=== PATIENT | male | born 1950 | race Caucasian/White ===

== ENCOUNTER 2018-09-21 18:01 | Inpatient (IN) | payer BC ==
[2018-09-21] MEDS ORDERED: HYDROmorphONE 0.5 MG/0.5 ML SYG IV (19:00)
[2018-09-21] MEDS ORDERED: NACL 0.9% 3 ML SYG IV (19:00)
[2018-09-21] MEDS ORDERED: AMIKACIN IV PER PHARMACY XX (19:00)
[2018-09-21] MEDS ORDERED: GLUCOSE GEL 15 GRAM TUBE PO ×2 (19:30)
[2018-09-21] MEDS ORDERED: GLUCOSE GEL 15 GRAM TUBE BUCCAL (19:30)
[2018-09-21] MEDS ORDERED: GLUCAGON 1 MG INJ IM (19:30)
[2018-09-21] MEDS ORDERED: DEXTROSE 50% 50 ML SYRINGE IV ×2 (19:30)
[2018-09-21 20:03] LABS: ADD MAN DIFF? NO
[2018-09-21 20:23] LABS: WHITE BLOOD COUNT 10.3 10^3/ul (4.8-10.8)
[2018-09-21 20:23] LABS: BASOPHILS % 0.2 % (0.0-2.0); EOSINOPHILS # 0.2 10^3/ul (0.0-0.5); EOSINOPHILS % 1.9 % (0.0-7.0); HEMATOCRIT 30.8 % (42.0-52.0); LYMPHOCYTES # 1.6 10^3/ul (0.8-2.9); LYMPHOCYTES % 15.5 % (15.0-51.0); MEAN CORPUSCULAR HEMOGLOBIN 27.6 pg (29.0-33.0); MEAN CORPUSCULAR HGB CONC 29.2 g/dl (32.0-37.0); MEAN CORPUSCULAR VOLUME 94.5 fl (82.0-101.0); MEAN PLATELET VOLUME 10.6 fl (7.4-10.4); MONOCYTE # 0.7 10^3/ul (0.3-0.9); MONOCYTES % 6.6 % (0.0-11.0); NEUTROPHIL # 7.7 10^3/ul (1.6-7.5); NEUTROPHILS % 74.8 % (39.0-77.0); NUCLEATED RED BLOOD CELLS% 0.2 /100WBC (0.0-0.0); PLATELET COUNT 348 10^3/UL (140-415); RED BLOOD COUNT 3.26 10^6/ul (4.70-6.10); RED CELL DISTRIBUTION WIDTH 17.2 % (11.5-14.5)
[2018-09-21 20:30] LABS: ANION GAP 7 (5-13); BLOOD UREA NITROGEN 30 mg/dl (7-20); CALCIUM 8.9 mg/dl (8.4-10.2); CARBON DIOXIDE 22 mmol/L (21-31); CHLORIDE 118 mmol/L (97-110); CREATININE 0.75 mg/dl (0.61-1.24); Estimated GFR > 60 mL/min (>60); GLUCOSE 333 mg/dl (70-220); POTASSIUM 4.8 mmol/L (3.5-5.1); SODIUM 147 mmol/L (135-144)
[2018-09-21] MEDS ORDERED: MEROPENEM 1 GM/50ML(PMX) 50 ML IVPB (20:43)
[2018-09-21] MEDS: APIXABAN 5 MG TABLET PO (22:09)
[2018-09-21] MEDS: INSULIN ASPART [NOVOLOG] 3 ML PEN SC (22:12)
[2018-09-21] MEDS: INSULIN GLARGINE [LANTus] (100 UNITS/ML) SYG SC (22:12)
[2018-09-21] MEDS: LEVETIRACETAM 500 MG (PMX) 100 ML IVPB (22:25)
[2018-09-21] MEDS: LACOSAMIDE (100 MG/10 ML PO SYR) PO (22:25)
[2018-09-21] MEDS: MEROPENEM 1 GM/50ML(PMX) 50 ML IVPB (22:45)
[2018-09-21] MEDS: LEVOFLOXACIN 250MG/D5W (PMX) 50 ML IVPB (23:30)
[2018-09-22] MEDS ORDERED: ONDANSETRON 4 MG INJ IV (00:30)
[2018-09-22] MEDS ORDERED: ACETAMINOPHEN 650MG/20.3ML CUP GTB (00:30)
[2018-09-22] MEDS: ALTEPLASE (CATHFLO) 2 MG INJ CATHETER ×3 (01:46→03:24)
[2018-09-22] MEDS ORDERED: INSULIN ASPART [NOVOLOG] 3 ML PEN SC (03:00)
[2018-09-22] MEDS ORDERED: Insulin NOVOLOG SS MODERATE Algorithm(NPO/TPN/ENTERAL FEEDS) SC (03:00)
[2018-09-22] MEDS ORDERED: PENDING SANTYL ORDER FOR WOUND CARE XX (05:00)
[2018-09-22] MEDS: MEROPENEM 1 GM/50ML(PMX) 50 ML IVPB ×3 (06:00→21:44)
[2018-09-22] MEDS: Insulin NOVOLOG SS MODERATE Algorithm(NPO/TPN/ENTERAL FEEDS) SC ×3 (06:16→17:21)
[2018-09-22] MEDS: APIXABAN 5 MG TABLET PO ×2 (08:34→21:44)
[2018-09-22] MEDS: LEVETIRACETAM 500 MG (PMX) 100 ML IVPB ×2 (08:34→21:45)
[2018-09-22] MEDS: LACOSAMIDE (100 MG/10 ML PO SYR) PO ×2 (08:37→21:44)
[2018-09-22 11:44] LABS: ADD MAN DIFF? NO
[2018-09-22 11:49] LABS: BASOPHILS % 0.2 % (0.0-2.0); EOSINOPHILS # 0.2 10^3/ul (0.0-0.5); EOSINOPHILS % 1.8 % (0.0-7.0); HEMATOCRIT 32.1 % (42.0-52.0); HEMOGLOBIN 9.3 g/dl (14.0-18.0); LYMPHOCYTES # 1.6 10^3/ul (0.8-2.9); LYMPHOCYTES % 13.3 % (15.0-51.0); MEAN CORPUSCULAR HEMOGLOBIN 27.6 pg (29.0-33.0); MEAN CORPUSCULAR VOLUME 95.3 fl (82.0-101.0); MEAN PLATELET VOLUME 10.6 fl (7.4-10.4); MONOCYTE # 0.8 10^3/ul (0.3-0.9); MONOCYTES % 7.1 % (0.0-11.0); NEUTROPHIL # 9.1 10^3/ul (1.6-7.5); NEUTROPHILS % 76.3 % (39.0-77.0); NUCLEATED RED BLOOD CELLS% 0.3 /100WBC (0.0-0.0); PLATELET COUNT 343 10^3/UL (140-415); RED BLOOD COUNT 3.37 10^6/ul (4.70-6.10); RED CELL DISTRIBUTION WIDTH 17.8 % (11.5-14.5)
[2018-09-22 11:49] LABS: WHITE BLOOD COUNT 11.8 10^3/ul (4.8-10.8)
[2018-09-22 11:59] LABS: HEMOGLOBIN A1C 7.7 % (0-5.9)
[2018-09-22 12:50] LABS: ALANINE AMINOTRANSFERASE 8 IU/L (13-69); ALBUMIN 3.1 g/dl (3.3-4.9); ALBUMIN/GLOBULIN RATIO 0.62; ALKALINE PHOSPHATASE 166 IU/L (42-121); ANION GAP 9 (5-13); ASPARTATE AMINO TRANSFERASE 20 IU/L (15-46); BILIRUBIN,INDIRECT 0.2 mg/dl (0-1.1); BILIRUBIN,TOTAL 0.2 mg/dl (0.2-1.3); BLOOD UREA NITROGEN 27 mg/dl (7-20); CALCIUM 9.1 mg/dl (8.4-10.2); CARBON DIOXIDE 23 mmol/L (21-31); CHLORIDE 117 mmol/L (97-110); CREATININE 0.78 mg/dl (0.61-1.24); Estimated GFR > 60 mL/min (>60); GLUCOSE 279 mg/dl (70-220); POTASSIUM 4.5 mmol/L (3.5-5.1); SODIUM 149 mmol/L (135-144); TOTAL PROTEIN 8.1 g/dl (6.1-8.1)
[2018-09-22] MEDS: BALSAM PERU/CASTOR OIL 60 GM TUBE TOP (15:44)
[2018-09-22] MEDS: LEVOFLOXACIN 250MG/D5W (PMX) 50 ML IVPB (21:44)
[2018-09-22] MEDS: INSULIN GLARGINE [LANTus] (100 UNITS/ML) SYG SC (22:15)
[2018-09-23] MEDS: Insulin NOVOLOG SS MODERATE Algorithm(NPO/TPN/ENTERAL FEEDS) SC ×5 (00:58→22:22)
[2018-09-23] MEDS: MEROPENEM 1 GM/50ML(PMX) 50 ML IVPB (06:27)
[2018-09-23] MEDS: LEVETIRACETAM 500 MG (PMX) 100 ML IVPB ×2 (08:30→22:10)
[2018-09-23] MEDS: LACOSAMIDE (100 MG/10 ML PO SYR) PO ×2 (08:30→21:00)
[2018-09-23] MEDS: APIXABAN 5 MG TABLET PO ×2 (08:30→22:09)
[2018-09-23] MEDS: BALSAM PERU/CASTOR OIL 60 GM TUBE TOP (08:32)
[2018-09-23] MEDS: metFORMIN 850 MG TAB GTB ×2 (11:48→17:43)
[2018-09-23 14:56] LABS: ADD MAN DIFF? NO
[2018-09-23 14:58] LABS: ABNORMAL IP MESSAGE 1; BASOPHILS % 0.3 % (0.0-2.0); EOSINOPHILS # 0.3 10^3/ul (0.0-0.5); EOSINOPHILS % 2.7 % (0.0-7.0); HEMATOCRIT 30.8 % (42.0-52.0); HEMOGLOBIN 8.7 g/dl (14.0-18.0); LYMPHOCYTES # 1.9 10^3/ul (0.8-2.9); MEAN CORPUSCULAR HEMOGLOBIN 26.9 pg (29.0-33.0); MEAN CORPUSCULAR HGB CONC 28.2 g/dl (32.0-37.0); MEAN CORPUSCULAR VOLUME 95.4 fl (82.0-101.0); MEAN PLATELET VOLUME 10.7 fl (7.4-10.4); MONOCYTE # 0.9 10^3/ul (0.3-0.9); MONOCYTES % 7.7 % (0.0-11.0); NEUTROPHIL # 7.9 10^3/ul (1.6-7.5); NEUTROPHILS % 70.6 % (39.0-77.0); PLATELET COUNT 345 10^3/UL (140-415); POSITIVE DIFF @See below; RED BLOOD COUNT 3.23 10^6/ul (4.70-6.10); RED CELL DISTRIBUTION WIDTH 17.8 % (11.5-14.5)
[2018-09-23 14:58] LABS: WHITE BLOOD COUNT 11.2 10^3/ul (4.8-10.8)
[2018-09-23 15:19] LABS: ANION GAP 6 (5-13); BLOOD UREA NITROGEN 26 mg/dl (7-20); CARBON DIOXIDE 26 mmol/L (21-31); CHLORIDE 115 mmol/L (97-110); CREATININE 0.78 mg/dl (0.61-1.24); Estimated GFR > 60 mL/min (>60); GLUCOSE 161 mg/dl (70-220); POTASSIUM 4.4 mmol/L (3.5-5.1); SODIUM 147 mmol/L (135-144)
[2018-09-23] MEDS ORDERED: AMIKACIN IV PER PHARMACY XX (16:00)
[2018-09-23] MEDS: AMIKACIN 750 MG in SOD CHLORIDE 0.9% 100 ML IVPB (17:41)
[2018-09-23] MEDS: MUPIROCIN 2% 22 GM OINT TOP (22:09)
[2018-09-23] MEDS: DOXYCYCLINE 100 MG TAB PO (22:10)
[2018-09-23] MEDS: INSULIN GLARGINE [LANTus] (100 UNITS/ML) SYG SC (22:13)
[2018-09-24] MEDS: Insulin NOVOLOG SS MODERATE Algorithm(NPO/TPN/ENTERAL FEEDS) SC ×3 (06:27→17:20)
[2018-09-24] MEDS: LEVETIRACETAM 500 MG (PMX) 100 ML IVPB (08:32)
[2018-09-24] MEDS: LACOSAMIDE (100 MG/10 ML PO SYR) PO (08:32)
[2018-09-24] MEDS: MUPIROCIN 2% 22 GM OINT TOP (08:33)
[2018-09-24] MEDS: DOXYCYCLINE 100 MG TAB PO (08:33)
[2018-09-24] MEDS: metFORMIN 850 MG TAB GTB ×2 (08:33→17:19)
[2018-09-24] MEDS: BALSAM PERU/CASTOR OIL 60 GM TUBE TOP (08:33)
[2018-09-24] MEDS: APIXABAN 5 MG TABLET PO (08:33)
[2018-09-24 11:41] LABS: AMIKACIN RANDOM 16.2 mg/L
[2018-09-25] MEDS ORDERED: AMIKACIN 750 MG in SOD CHLORIDE 0.9% 100 ML IVPB (18:00)
== END 2018-09-24 19:10 | DRG 871 ==
LOC: TEL 18:01 → 5EC 09-24 12:34
PROC: 5A1945Z Respiratory Ventilation, 24-96 Consecutive Hours (ICD-10-PCS; principal; 2018-09-21)
DX: A41.9 Sepsis, unspecified organism (principal); J18.9 Pneumonia, unspecified organism; G93.49 Other encephalopathy; Z94.4 Liver transplant status; J96.10 Chronic respiratory failure, unspecified whether with hypoxia or hypercapnia; I48.91 Unspecified atrial fibrillation; Z99.81 Dependence on supplemental oxygen; I69.998 Other sequelae following unspecified cerebrovascular disease; E11.9 Type 2 diabetes mellitus without complications; G40.909 Epilepsy, unspecified, not intractable, without status epilepticus; Y95 Nosocomial condition; Z79.4 Long term (current) use of insulin; Z79.84 Long term (current) use of oral hypoglycemic drugs
CPT/HCPCS: 71045; 80048; 80053; 80150; 82962; 83036; 85025; 87081

== ENCOUNTER 2018-10-30 09:14 | Inpatient (IN) | payer BC ==
[2018-10-30] MEDS ORDERED: ONDANSETRON 4 MG INJ IV (14:30)
[2018-10-30] MEDS ORDERED: LORAZEPAM 0.5 MG TAB GTB (14:30)
[2018-10-30] MEDS ORDERED: ALBUTEROL 0.083% (NEB) 2.5 MG/3 ML AMP NEB (14:30)
[2018-10-30] MEDS ORDERED: ZOLPIDEM 5 MG TAB PO (14:30)
[2018-10-30] MEDS ORDERED: NACL 0.9% 3 ML SYG IV (14:30)
[2018-10-30] MEDS ORDERED: morphine 2 MG INJ IV (14:30)
[2018-10-30] MEDS ORDERED: ACETAMINOPHEN 325 MG TAB PO (14:30)
[2018-10-30] MEDS ORDERED: VANCOMYCIN IV PER PHARMACY XX (15:00)
[2018-10-30] MEDS ORDERED: GLUCAGON 1 MG INJ IM (15:30)
[2018-10-30] MEDS ORDERED: GLUCOSE GEL 15 GRAM TUBE BUCCAL (15:30)
[2018-10-30] MEDS ORDERED: GLUCOSE GEL 15 GRAM TUBE PO ×2 (15:30)
[2018-10-30] MEDS ORDERED: PENDING SANTYL ORDER FOR WOUND CARE XX (15:30)
[2018-10-30] MEDS ORDERED: DEXTROSE 50% 50 ML SYRINGE IV ×2 (15:30)
[2018-10-30] MEDS: SOD CHLORIDE 0.9% 1,000 ML IV (15:57)
[2018-10-30] MEDS: PIPER-TAZO 3.375 GM IV (PMX) 100 ML IVPB ×2 (15:59→23:04)
[2018-10-30 16:02] LABS: INR 1.47; PROTIME 17.9 Sec (11.9-14.9); PT RATIO 1.4
[2018-10-30 16:03] LABS: PARTIAL THROMBOPLASTIN TIME 39.5 Sec (23.0-35.0)
[2018-10-30 16:23] LABS: CREATINE KINASE 20 IU/L (23-200)
[2018-10-30 16:24] LABS: ALBUMIN 3.1 g/dl (3.3-4.9); ALKALINE PHOSPHATASE 130 IU/L (42-121); ASPARTATE AMINO TRANSFERASE 22 IU/L (15-46); BILIRUBIN,INDIRECT 0.4 mg/dl (0-1.1); BILIRUBIN,TOTAL 0.4 mg/dl (0.2-1.3); MAGNESIUM 2.5 mg/dl (1.7-2.5); PHOSPHORUS 2.9 mg/dl (2.5-4.9); TOTAL PROTEIN 8.1 g/dl (6.1-8.1)
[2018-10-30 16:25] LABS: ALANINE AMINOTRANSFERASE < 6 IU/L (13-69)
[2018-10-30 16:36] LABS: CK INDEX 2.9; CK-MB 0.58 ng/ml (0.0-2.4); TROPONIN-I 0.093 ng/ml (0.000-0.120)
[2018-10-30 16:50] LABS: CREATININE 1.15 mg/dl (0.61-1.24)
[2018-10-30 16:50] LABS: BLOOD UREA NITROGEN 42 mg/dl (7-20)
[2018-10-30 17:18] LABS: DIGOXIN 1.2 ng/ml (1.0-2.0)
[2018-10-30 17:25] LABS: TOTAL IRON BINDING CAPACITY 186 ug/dl (241-421)
[2018-10-30] MEDS: INSULIN ASPART [NOVOLOG] 3 ML PEN SC ×2 (17:58→20:37)
[2018-10-30 18:06] LABS: IRON < 10 ug/dl (35-150)
[2018-10-30] MEDS: IPRATROPIUM (HFA) 12.9 GM INHALER INH (20:00)
[2018-10-30] MEDS: ALBUTEROL HFA 8 GM INHALER INH (20:00)
[2018-10-30] MEDS: LACOSAMIDE (100 MG/10 ML PO SYR) GTB (20:18)
[2018-10-30] MEDS: BALSAM PERU/CASTOR OIL 60 GM TUBE TOP (20:18)
[2018-10-30] MEDS: LEVETIRACETAM (100 MG/ML) 5ML CUP GTB (20:19)
[2018-10-30] MEDS: ATORVASTATIN 10 MG TAB GTB (20:19)
[2018-10-30] MEDS: FAMOTIDINE 20 MG TAB GTB (20:19)
[2018-10-30] MEDS: NEUTRA-PHOS 250 MG PACKET PO (20:19)
[2018-10-30] MEDS: METOPROLOL 25 MG TAB PO (20:20)
[2018-10-30] MEDS: VANCOMYCIN HCL 1.5 GM in SOD CHLORIDE 0.9% 250 ML IVPB (20:24)
[2018-10-30 20:48] LABS: CREATINE KINASE 21 IU/L (23-200)
[2018-10-30 20:57] LABS: CK INDEX 2.1; CK-MB 0.45 ng/ml (0.0-2.4)
[2018-10-30 21:01] LABS: TROPONIN-I 0.094 ng/ml (0.000-0.120)
[2018-10-30] MEDS: CARBOXYMETHYLCELLULOSE 0.5% 0.4 ML OPH BOTH EYES (23:04)
[2018-10-30 23:30] LABS: ADD UMIC YES; UR ASCORBIC ACID 20 mg/dL (NEGATIVE); UR BACTERIA MODERATE /HPF (NONE SEEN); UR BILIRUBIN (Dip) NEGATIVE (NEGATIVE); UR BLOOD (Dip) 2+ mg/dL (NEGATIVE); UR CLARITY CLOUDY (CLEAR); UR COLOR RED (YELLOW); UR GLUCOSE (Dip) NEGATIVE (NEGATIVE); UR KETONES (Dip) TRACE mg/dL (NEGATIVE); UR LEUKOCYTE ESTERASE (Dip) 2+ Leu/ul (NEGATIVE); UR NITRITE (Dip) NEGATIVE (NEGATIVE); UR RBC > 182 /HPF (0-5); UR SPECIFIC GRAVITY (Dip) 1.018 (1.003-1.030); UR TOTAL PROTEIN (Dip) 2+ mg/dl (NEGATIVE); UR UROBILINOGEN (Dip) NEGATIVE (NEGATIVE); UR WBC 6 /HPF (0-5)
[2018-10-31] MEDS: ACCU-CHEK XX (02:00)
[2018-10-31] MEDS: ALBUTEROL HFA 8 GM INHALER INH ×4 (02:07→20:00)
[2018-10-31] MEDS: SOD CHLORIDE 0.9% 1,000 ML IV (02:54)
[2018-10-31] MEDS: PIPER-TAZO 3.375 GM IV (PMX) 100 ML IVPB ×2 (05:08→22:54)
[2018-10-31] MEDS: CARBOXYMETHYLCELLULOSE 0.5% 0.4 ML OPH BOTH EYES ×3 (05:08→22:03)
[2018-10-31] MEDS: ACETAMINOPHEN 650MG/20.3ML CUP PEG ×2 (05:09→14:44)
[2018-10-31 05:48] LABS: ADD MAN DIFF? NO
[2018-10-31 05:53] LABS: WHITE BLOOD COUNT 6.7 10^3/ul (4.8-10.8)
[2018-10-31 05:53] LABS: ABNORMAL IP MESSAGE 1; BASOPHILS % 0.3 % (0.0-2.0); EOSINOPHILS # 0.1 10^3/ul (0.0-0.5); EOSINOPHILS % 1.9 % (0.0-7.0); HEMATOCRIT 22.8 % (42.0-52.0); LYMPHOCYTES # 1.3 10^3/ul (0.8-2.9); MEAN CORPUSCULAR HGB CONC 28.9 g/dl (32.0-37.0); MEAN CORPUSCULAR VOLUME 96.6 fl (82.0-101.0); MEAN PLATELET VOLUME 9.7 fl (7.4-10.4); MONOCYTE # 0.3 10^3/ul (0.3-0.9); MONOCYTES % 5.1 % (0.0-11.0); NEUTROPHIL # 4.8 10^3/ul (1.6-7.5); PLATELET COUNT 234 10^3/UL (140-415); POSITIVE DIFF @See below; RED BLOOD COUNT 2.36 10^6/ul (4.70-6.10); RED CELL DISTRIBUTION WIDTH 20.7 % (11.5-14.5)
[2018-10-31 06:15] LABS: HEMOGLOBIN 6.6 g/dl (14.0-18.0)
[2018-10-31 06:26] LABS: ANION GAP 9 (5-13); BLOOD UREA NITROGEN 45 mg/dl (7-20); CALCIUM 8.4 mg/dl (8.4-10.2); CARBON DIOXIDE 28 mmol/L (21-31); CHLORIDE 108 mmol/L (97-110); CREATININE 1.16 mg/dl (0.61-1.24); Estimated GFR > 60 mL/min (>60); GLUCOSE 397 mg/dl (70-220); MAGNESIUM 2.4 mg/dl (1.7-2.5); POTASSIUM 3.7 mmol/L (3.5-5.1); SODIUM 145 mmol/L (135-144)
[2018-10-31 06:37] LABS: HEMOGLOBIN A1C 7.6 % (0-5.9)
[2018-10-31 06:48] LABS: THYROID STIMULATING HORMONE 0.712 MIU/L (0.465-4.680)
[2018-10-31] MEDS: IPRATROPIUM (HFA) 12.9 GM INHALER INH ×3 (08:18→20:00)
[2018-10-31] MEDS: METOPROLOL 25 MG TAB PO ×2 (09:00→21:00)
[2018-10-31] MEDS: INSULIN ASPART [NOVOLOG] 3 ML PEN SC ×4 (09:04→22:16)
[2018-10-31] MEDS: VANCOMYCIN 1 GM 250 ML IVPB ×2 (09:13→23:42)
[2018-10-31] MEDS: NEUTRA-PHOS 250 MG PACKET PO ×3 (09:14→22:02)
[2018-10-31] MEDS: FAMOTIDINE 20 MG TAB GTB ×2 (09:15→22:01)
[2018-10-31] MEDS: FLUOXETINE 20 MG CAP PEG (09:15)
[2018-10-31] MEDS: FOLIC ACID 1 MG TAB GTB (09:15)
[2018-10-31] MEDS: BALSAM PERU/CASTOR OIL 60 GM TUBE TOP ×2 (09:15→22:04)
[2018-10-31] MEDS: ASCORBIC ACID 500 MG TAB PEG (09:15)
[2018-10-31] MEDS: LEVETIRACETAM (100 MG/ML) 5ML CUP GTB ×2 (09:19→22:01)
[2018-10-31] MEDS: LACOSAMIDE (100 MG/10 ML PO SYR) GTB ×2 (09:19→22:53)
[2018-10-31] MEDS ORDERED: NPH, HUMAN INSULIN ISOPHANE 3ML VIAL SC (11:30)
[2018-10-31] MEDS: DIGOXIN 0.125 MG TAB GTB (13:00)
[2018-10-31] MEDS: INSULIN ASP PROT/ASPART (70/30) PEN SC ×2 (13:47→22:15)
[2018-10-31] MEDS ORDERED: DEXTROSE 5% 1,000 ML IV (15:30)
[2018-10-31 17:33] LABS: IMMEDIATE SPIN CROSSMATCH 1 2
[2018-10-31] MEDS: ATORVASTATIN 10 MG TAB GTB (22:01)
[2018-11-01] MEDS: ACCU-CHEK XX ×3 (01:11→02:07)
[2018-11-01] MEDS: ALBUTEROL HFA 8 GM INHALER INH ×4 (01:11→21:19)
[2018-11-01] MEDS: IPRATROPIUM (HFA) 12.9 GM INHALER INH ×4 (01:12→21:19)
[2018-11-01] MEDS: CARBOXYMETHYLCELLULOSE 0.5% 0.4 ML OPH BOTH EYES ×3 (06:27→22:39)
[2018-11-01] MEDS: PIPER-TAZO 3.375 GM IV (PMX) 100 ML IVPB ×3 (06:27→22:43)
[2018-11-01 07:59] LABS: ADD MAN DIFF? NO
[2018-11-01] MEDS: VANCOMYCIN 1 GM 250 ML IVPB (08:00)
[2018-11-01 08:09] LABS: WHITE BLOOD COUNT 6.4 10^3/ul (4.8-10.8)
[2018-11-01 08:09] LABS: BASOPHILS % 0.3 % (0.0-2.0); EOSINOPHILS # 0.1 10^3/ul (0.0-0.5); EOSINOPHILS % 1.4 % (0.0-7.0); HEMATOCRIT 32.9 % (42.0-52.0); HEMOGLOBIN 9.8 g/dl (14.0-18.0); LYMPHOCYTES # 1.4 10^3/ul (0.8-2.9); LYMPHOCYTES % 21.9 % (15.0-51.0); MEAN CORPUSCULAR HEMOGLOBIN 27.8 pg (29.0-33.0); MEAN CORPUSCULAR HGB CONC 29.8 g/dl (32.0-37.0); MEAN CORPUSCULAR VOLUME 93.2 fl (82.0-101.0); MEAN PLATELET VOLUME 9.9 fl (7.4-10.4); MONOCYTE # 0.5 10^3/ul (0.3-0.9); MONOCYTES % 7.1 % (0.0-11.0); NEUTROPHIL # 4.4 10^3/ul (1.6-7.5); NEUTROPHILS % 68.7 % (39.0-77.0); PLATELET COUNT 215 10^3/UL (140-415); RED BLOOD COUNT 3.53 10^6/ul (4.70-6.10); RED CELL DISTRIBUTION WIDTH 19.8 % (11.5-14.5)
[2018-11-01] MEDS: INSULIN ASPART [NOVOLOG] 3 ML PEN SC ×4 (08:15→21:00)
[2018-11-01 08:34] LABS: ANION GAP 8 (5-13); BLOOD UREA NITROGEN 48 mg/dl (7-20); CALCIUM 8.6 mg/dl (8.4-10.2); CARBON DIOXIDE 29 mmol/L (21-31); CHLORIDE 110 mmol/L (97-110); CREATININE 1.04 mg/dl (0.61-1.24); Estimated GFR > 60 mL/min (>60); GLUCOSE 310 mg/dl (70-220); POTASSIUM 3.8 mmol/L (3.5-5.1); SODIUM 147 mmol/L (135-144)
[2018-11-01 08:37] LABS: VANCOMYCIN,TROUGH 33.4 ug/ml (10.0-20.0)
[2018-11-01] MEDS: NEUTRA-PHOS 250 MG PACKET PO ×3 (09:10→22:39)
[2018-11-01] MEDS: FLUOXETINE 20 MG CAP PEG (09:10)
[2018-11-01] MEDS: FOLIC ACID 1 MG TAB GTB (09:10)
[2018-11-01] MEDS: LEVETIRACETAM (100 MG/ML) 5ML CUP GTB ×2 (09:10→22:40)
[2018-11-01] MEDS: METOPROLOL 25 MG TAB PO ×2 (09:10→22:42)
[2018-11-01] MEDS: FAMOTIDINE 20 MG TAB GTB ×2 (09:10→22:39)
[2018-11-01] MEDS: ASCORBIC ACID 500 MG TAB PEG (09:10)
[2018-11-01] MEDS: BALSAM PERU/CASTOR OIL 60 GM TUBE TOP ×2 (09:11→22:43)
[2018-11-01] MEDS: INSULIN ASP PROT/ASPART (70/30) PEN SC ×2 (09:17→23:04)
[2018-11-01] MEDS: LACOSAMIDE (100 MG/10 ML PO SYR) GTB ×2 (09:22→22:40)
[2018-11-01] MEDS: SOD FERRIC GLUC COMPLX 125 MG in SOD CHLORIDE 0.9% 100 ML IVPB (13:14)
[2018-11-01 17:33] LABS: ADD UMIC YES; UR ASCORBIC ACID 40 mg/dL (NEGATIVE); UR BACTERIA FEW /HPF (NONE SEEN); UR BILIRUBIN (Dip) NEGATIVE (NEGATIVE); UR BLOOD (Dip) 1+ mg/dL (NEGATIVE); UR CLARITY SLIGHTLY CLOUDY (CLEAR); UR COLOR YELLOW (YELLOW); UR GLUCOSE (Dip) NEGATIVE (NEGATIVE); UR KETONES (Dip) NEGATIVE (NEGATIVE); UR LEUKOCYTE ESTERASE (Dip) 2+ Leu/ul (NEGATIVE); UR NITRITE (Dip) NEGATIVE (NEGATIVE); UR RBC 145 /HPF (0-5); UR SPECIFIC GRAVITY (Dip) 1.021 (1.003-1.030); UR TOTAL PROTEIN (Dip) 1+ mg/dl (NEGATIVE); UR UROBILINOGEN (Dip) 2+ mg/dL (NEGATIVE); UR WBC 14 /HPF (0-5)
[2018-11-01 17:55] LABS: CREATININE,URINE RANDOM 40.81 mg/dl (20-370)
[2018-11-01 17:55] LABS: SODIUM,URINE RANDOM 79 mmol/L (30-90)
[2018-11-01 18:01] LABS: OSMOLALITY,URINE 509 mOsm/kg (250-1200)
[2018-11-01] MEDS: ATORVASTATIN 10 MG TAB GTB (22:39)
[2018-11-02] MEDS: VANCOMYCIN 1 GM 250 ML IVPB (00:37)
[2018-11-02] MEDS: ALBUTEROL HFA 8 GM INHALER INH ×4 (01:42→21:34)
[2018-11-02] MEDS: IPRATROPIUM (HFA) 12.9 GM INHALER INH ×4 (01:42→21:34)
[2018-11-02] MEDS: ACCU-CHEK XX ×2 (02:00)
[2018-11-02] MEDS: CARBOXYMETHYLCELLULOSE 0.5% 0.4 ML OPH BOTH EYES ×3 (07:06→21:46)
[2018-11-02] MEDS: PIPER-TAZO 3.375 GM IV (PMX) 100 ML IVPB ×3 (07:06→21:47)
[2018-11-02] MEDS: INSULIN ASPART [NOVOLOG] 3 ML PEN SC ×3 (08:06→18:00)
[2018-11-02] MEDS: NEUTRA-PHOS 250 MG PACKET PO ×3 (08:29→21:45)
[2018-11-02] MEDS: INSULIN ASP PROT/ASPART (70/30) PEN SC (08:29)
[2018-11-02] MEDS: ASCORBIC ACID 500 MG TAB PEG (08:29)
[2018-11-02] MEDS: FOLIC ACID 1 MG TAB GTB (08:29)
[2018-11-02] MEDS: LEVETIRACETAM (100 MG/ML) 5ML CUP GTB ×2 (08:30→21:44)
[2018-11-02] MEDS: FLUOXETINE 20 MG CAP PEG (08:30)
[2018-11-02] MEDS: LACOSAMIDE (100 MG/10 ML PO SYR) GTB ×2 (08:30→21:45)
[2018-11-02] MEDS: FAMOTIDINE 20 MG TAB GTB ×2 (08:30→21:45)
[2018-11-02] MEDS: METOPROLOL 25 MG TAB PO ×2 (08:30→21:49)
[2018-11-02] MEDS: BALSAM PERU/CASTOR OIL 60 GM TUBE TOP ×2 (08:31→21:46)
[2018-11-02 09:17] LABS: ADD MAN DIFF? NO
[2018-11-02 09:23] LABS: WHITE BLOOD COUNT 5.3 10^3/ul (4.8-10.8)
[2018-11-02 09:23] LABS: BASOPHILS % 0.4 % (0.0-2.0); EOSINOPHILS # 0.1 10^3/ul (0.0-0.5); EOSINOPHILS % 2.3 % (0.0-7.0); HEMATOCRIT 30.6 % (42.0-52.0); LYMPHOCYTES # 1.3 10^3/ul (0.8-2.9); LYMPHOCYTES % 23.9 % (15.0-51.0); MEAN CORPUSCULAR HEMOGLOBIN 27.7 pg (29.0-33.0); MEAN CORPUSCULAR HGB CONC 29.4 g/dl (32.0-37.0); MEAN CORPUSCULAR VOLUME 94.2 fl (82.0-101.0); MEAN PLATELET VOLUME 10.1 fl (7.4-10.4); MONOCYTE # 0.4 10^3/ul (0.3-0.9); MONOCYTES % 8.2 % (0.0-11.0); NEUTROPHIL # 3.4 10^3/ul (1.6-7.5); NEUTROPHILS % 64.6 % (39.0-77.0); PLATELET COUNT 223 10^3/UL (140-415); RED BLOOD COUNT 3.25 10^6/ul (4.70-6.10); RED CELL DISTRIBUTION WIDTH 19.5 % (11.5-14.5)
[2018-11-02 09:37] LABS: MAGNESIUM 2.3 mg/dl (1.7-2.5)
[2018-11-02 09:38] LABS: ANION GAP 6 (5-13); BLOOD UREA NITROGEN 38 mg/dl (7-20); CALCIUM 8.8 mg/dl (8.4-10.2); CARBON DIOXIDE 30 mmol/L (21-31); CHLORIDE 113 mmol/L (97-110); CREATININE 0.88 mg/dl (0.61-1.24); Estimated GFR > 60 mL/min (>60); GLUCOSE 209 mg/dl (70-220); POTASSIUM 3.4 mmol/L (3.5-5.1); SODIUM 149 mmol/L (135-144)
[2018-11-02 11:12] LABS: AADO2 Arterial 94.9 mmHg (7.0-24.0); Arterial COHb 0.1 % (0.0-3.0); Arterial Fraction of Oxyhgb 97.7 % (93.0-99.0); Arterial MetHb 0.2 % (0.0-1.5); Arterial pCO2 39.3 mmhg (35-45); MODE VENT - AC; Site Right Brachial
[2018-11-02] MEDS: SOD FERRIC GLUC COMPLX 125 MG in SOD CHLORIDE 0.9% 100 ML IVPB (12:09)
[2018-11-02] MEDS: APIXABAN 5 MG TABLET GTB ×2 (12:09→21:44)
[2018-11-02 14:39] LABS: CREATININE, RANDOM URINE 42 mg/dL (20-320); MICROALBUMIN 9.5 mg/dL; MICROALBUMIN/CREATININE RATIO 226 (<30)
[2018-11-02] MEDS: POTASSIUM CHLORIDE 100 ML IVPB ×2 (14:47→17:42)
[2018-11-02] MEDS: ATORVASTATIN 10 MG TAB GTB (21:45)
[2018-11-03] MEDS: INSULIN ASP PROT/ASPART (70/30) PEN SC ×2 (00:06→10:16)
[2018-11-03] MEDS: ALBUTEROL HFA 8 GM INHALER INH ×3 (02:09→13:12)
[2018-11-03] MEDS: INSULIN ASPART [NOVOLOG] 3 ML PEN SC ×4 (06:00→18:00)
[2018-11-03 06:09] LABS: ADD MAN DIFF? NO
[2018-11-03 06:32] LABS: BASOPHILS % 0.6 % (0.0-2.0); EOSINOPHILS # 0.1 10^3/ul (0.0-0.5); EOSINOPHILS % 2.9 % (0.0-7.0); HEMATOCRIT 29.8 % (42.0-52.0); LYMPHOCYTES # 1.3 10^3/ul (0.8-2.9); LYMPHOCYTES % 27.5 % (15.0-51.0); MEAN CORPUSCULAR HEMOGLOBIN 28.3 pg (29.0-33.0); MEAN CORPUSCULAR HGB CONC 30.2 g/dl (32.0-37.0); MEAN CORPUSCULAR VOLUME 93.7 fl (82.0-101.0); MEAN PLATELET VOLUME 10.1 fl (7.4-10.4); MONOCYTE # 0.5 10^3/ul (0.3-0.9); MONOCYTES % 10.9 % (0.0-11.0); NEUTROPHIL # 2.8 10^3/ul (1.6-7.5); NEUTROPHILS % 57.7 % (39.0-77.0); PLATELET COUNT 222 10^3/UL (140-415); RED BLOOD COUNT 3.18 10^6/ul (4.70-6.10); RED CELL DISTRIBUTION WIDTH 19.2 % (11.5-14.5)
[2018-11-03 06:32] LABS: WHITE BLOOD COUNT 4.8 10^3/ul (4.8-10.8)
[2018-11-03] MEDS: PIPER-TAZO 3.375 GM IV (PMX) 100 ML IVPB ×2 (06:32→16:01)
[2018-11-03] MEDS: CARBOXYMETHYLCELLULOSE 0.5% 0.4 ML OPH BOTH EYES ×2 (06:33→16:01)
[2018-11-03 06:56] LABS: ANION GAP 5 (5-13); BLOOD UREA NITROGEN 37 mg/dl (7-20); CALCIUM 8.3 mg/dl (8.4-10.2); CARBON DIOXIDE 28 mmol/L (21-31); CHLORIDE 113 mmol/L (97-110); CREATININE 0.82 mg/dl (0.61-1.24); Estimated GFR > 60 mL/min (>60); GLUCOSE 128 mg/dl (70-220); MAGNESIUM 2.2 mg/dl (1.7-2.5); PHOSPHORUS 3.2 mg/dl (2.5-4.9); POTASSIUM 4.3 mmol/L (3.5-5.1); SODIUM 146 mmol/L (135-144)
[2018-11-03] MEDS: BALSAM PERU/CASTOR OIL 60 GM TUBE TOP (09:00)
[2018-11-03] MEDS: IPRATROPIUM (HFA) 12.9 GM INHALER INH ×2 (09:10→13:11)
[2018-11-03] MEDS: APIXABAN 5 MG TABLET GTB (10:04)
[2018-11-03] MEDS: ASCORBIC ACID 500 MG TAB PEG (10:04)
[2018-11-03] MEDS: FOLIC ACID 1 MG TAB GTB (10:04)
[2018-11-03] MEDS: FLUOXETINE 20 MG CAP PEG (10:04)
[2018-11-03] MEDS: FAMOTIDINE 20 MG TAB GTB (10:04)
[2018-11-03] MEDS: NEUTRA-PHOS 250 MG PACKET PO ×2 (10:04→12:57)
[2018-11-03] MEDS: LEVETIRACETAM (100 MG/ML) 5ML CUP GTB (10:04)
[2018-11-03] MEDS: METOPROLOL 25 MG TAB PO (10:05)
[2018-11-03] MEDS: LACOSAMIDE (100 MG/10 ML PO SYR) GTB (10:06)
[2018-11-03] MEDS: SOD FERRIC GLUC COMPLX 125 MG in SOD CHLORIDE 0.9% 100 ML IVPB (12:58)
[2018-11-05] MEDS ORDERED: ERGOCALCIFEROL (8000 UNITS/ML PO SYG) GTB (09:00)
== END 2018-11-03 19:30 | DRG 870 ==
LOC: 6WM 09:14
PROC: 5A1955Z Respiratory Ventilation, Greater than 96 Consecutive Hours (ICD-10-PCS; principal; 2018-10-30)
PROC: 30233N1 Transfusion of Nonautologous Red Blood Cells into Peripheral Vein, Percutaneous Approach (ICD-10-PCS; 2018-10-31)
DX: A41.9 Sepsis, unspecified organism (principal); J18.9 Pneumonia, unspecified organism; N39.0 Urinary tract infection, site not specified; Z94.4 Liver transplant status; D62 Acute posthemorrhagic anemia; J96.10 Chronic respiratory failure, unspecified whether with hypoxia or hypercapnia; E87.0 Hyperosmolality and hypernatremia; Z99.11 Dependence on respirator [ventilator] status; I48.2 Chronic atrial fibrillation; Z79.01 Long term (current) use of anticoagulants; R31.9 Hematuria, unspecified; D50.0 Iron deficiency anemia secondary to blood loss (chronic); E11.65 Type 2 diabetes mellitus with hyperglycemia; Z93.0 Tracheostomy status; G40.909 Epilepsy, unspecified, not intractable, without status epilepticus
CPT/HCPCS: 36430; 36600; 71045; 80048; 80076; 80162; 80202; 81001; 81003; 82043; 82550; 82553; 82565; 82803; 82962; 83036; 83540; 83735; 83935; 84100; 84155; 84300; 84443; 84484; 84520; 85025; 85610; 85730; 86850; 86900; 86901; 86920; 87040-91; 87070; 87086; 89220; 92610; 93005; 93306; 93970; 94003; 94640; 97163; 97165

== ENCOUNTER 2018-11-04 20:55 | Inpatient (IN) | payer BC ==
[2018-11-04] MEDS ORDERED: IPRATROPIUM (HFA) 12.9 GM INHALER INH (21:30)
[2018-11-04] MEDS ORDERED: ONDANSETRON 4 MG INJ IV (21:30)
[2018-11-04] MEDS ORDERED: ALBUTEROL 0.083% (NEB) 2.5 MG/3 ML AMP NEB (21:30)
[2018-11-04] MEDS ORDERED: DIPHENHYDRAMINE 2.5 MG/ML 5ML CUP GTB (21:30)
[2018-11-04] MEDS ORDERED: NACL 0.9% 3 ML SYG IV (21:30)
[2018-11-04] MEDS ORDERED: ACETAMINOPHEN 650MG/20.3ML CUP GTB (21:30)
[2018-11-05] MEDS ORDERED: ALBUTEROL/IPRATROPIUM (NEB) 3 ML AMP HHN
[2018-11-05] MEDS ORDERED: METOPROLOL 5 MG INJ IV (01:00)
[2018-11-05] MEDS: CARBOXYMETHYLCELLULOSE 0.5% 0.4 ML OPH BOTH EYES ×4 (01:48→21:53)
[2018-11-05] MEDS: ALBUTEROL HFA 8 GM INHALER INH ×4 (02:25→20:11)
[2018-11-05] MEDS: IPRATROPIUM (HFA) 12.9 GM INHALER INH ×4 (02:25→20:11)
[2018-11-05 06:26] LABS: ADD MAN DIFF? NO
[2018-11-05 06:38] LABS: WHITE BLOOD COUNT 5.9 10^3/ul (4.8-10.8)
[2018-11-05 06:38] LABS: BASOPHILS % 0.7 % (0.0-2.0); EOSINOPHILS # 0.1 10^3/ul (0.0-0.5); EOSINOPHILS % 1.9 % (0.0-7.0); HEMATOCRIT 28.7 % (42.0-52.0); HEMOGLOBIN 8.7 g/dl (14.0-18.0); LYMPHOCYTES # 1.3 10^3/ul (0.8-2.9); LYMPHOCYTES % 22.2 % (15.0-51.0); MEAN CORPUSCULAR HEMOGLOBIN 28.5 pg (29.0-33.0); MEAN CORPUSCULAR HGB CONC 30.3 g/dl (32.0-37.0); MEAN CORPUSCULAR VOLUME 94.1 fl (82.0-101.0); MEAN PLATELET VOLUME 10.8 fl (7.4-10.4); MONOCYTE # 0.9 10^3/ul (0.3-0.9); NEUTROPHIL # 3.4 10^3/ul (1.6-7.5); NEUTROPHILS % 57.8 % (39.0-77.0); PLATELET COUNT 218 10^3/UL (140-415); RED BLOOD COUNT 3.05 10^6/ul (4.70-6.10)
[2018-11-05 07:10] LABS: ALANINE AMINOTRANSFERASE 11 IU/L (13-69); ALBUMIN 2.9 g/dl (3.3-4.9); ALBUMIN/GLOBULIN RATIO 0.65; ALKALINE PHOSPHATASE 121 IU/L (42-121); ANION GAP 9 (5-13); ASPARTATE AMINO TRANSFERASE 24 IU/L (15-46); BILIRUBIN,INDIRECT 0.1 mg/dl (0-1.1); BILIRUBIN,TOTAL 0.1 mg/dl (0.2-1.3); BLOOD UREA NITROGEN 43 mg/dl (7-20); CALCIUM 8.7 mg/dl (8.4-10.2); CARBON DIOXIDE 24 mmol/L (21-31); CHLORIDE 111 mmol/L (97-110); CREATININE 1.02 mg/dl (0.61-1.24); Estimated GFR > 60 mL/min (>60); GLUCOSE 283 mg/dl (70-220); MAGNESIUM 2.4 mg/dl (1.7-2.5); PHOSPHORUS 3.3 mg/dl (2.5-4.9); POTASSIUM 4.7 mmol/L (3.5-5.1); SODIUM 144 mmol/L (135-144); TOTAL PROTEIN 7.3 g/dl (6.1-8.1)
[2018-11-05] MEDS: BALSAM PERU/CASTOR OIL 60 GM TUBE TOP ×2 (09:00→21:00)
[2018-11-05] MEDS: LACOSAMIDE (100 MG/10 ML PO SYR) GTB ×2 (09:00→21:53)
[2018-11-05] MEDS: METOPROLOL 25 MG TAB GTB (09:00)
[2018-11-05] MEDS: APIXABAN 5 MG TABLET GTB ×2 (09:01→20:27)
[2018-11-05] MEDS: NEUTRA-PHOS 250 MG PACKET PO ×3 (09:01→20:26)
[2018-11-05] MEDS: ASCORBIC ACID 500 MG TAB GTB (09:01)
[2018-11-05] MEDS: FAMOTIDINE 20 MG TAB GTB ×2 (09:01→20:26)
[2018-11-05] MEDS: FOLIC ACID 1 MG TAB GTB (09:01)
[2018-11-05] MEDS: LEVETIRACETAM (100 MG/ML) 5ML CUP GTB ×2 (09:01→20:26)
[2018-11-05] MEDS: FLUOXETINE 20 MG CAP GTB (09:02)
[2018-11-05] MEDS ORDERED: DEXTROSE 50% 50 ML SYRINGE IV ×2 (12:30)
[2018-11-05] MEDS ORDERED: GLUCAGON 1 MG INJ IM (12:30)
[2018-11-05] MEDS ORDERED: GLUCOSE GEL 15 GRAM TUBE PO ×2 (12:30)
[2018-11-05] MEDS ORDERED: GLUCOSE GEL 15 GRAM TUBE BUCCAL (12:30)
[2018-11-05 12:39] LABS: HEMOGLOBIN A1C 6.9 % (0-5.9)
[2018-11-05] MEDS ORDERED: DIGOXIN 0.125 MG TAB GTB (13:00)
[2018-11-05] MEDS: INSULIN ASPART [NOVOLOG] 3 ML PEN SC ×3 (13:03→22:04)
[2018-11-05] MEDS: CHLORPROMAZINE 25 MG TAB GTB (20:27)
[2018-11-05] MEDS: ATORVASTATIN 10 MG TAB GTB (20:27)
[2018-11-05] MEDS: INSULIN ASP PROT/ASPART (70/30) PEN SC (22:04)
[2018-11-06] MEDS: INSULIN ASPART [NOVOLOG] 3 ML PEN SC ×5 (01:50→17:36)
[2018-11-06] MEDS: ACCU-CHEK XX ×2 (02:07→17:27)
[2018-11-06] MEDS: ALBUTEROL HFA 8 GM INHALER INH ×3 (02:10→13:44)
[2018-11-06] MEDS: IPRATROPIUM (HFA) 12.9 GM INHALER INH ×3 (02:11→13:44)
[2018-11-06] MEDS: CARBOXYMETHYLCELLULOSE 0.5% 0.4 ML OPH BOTH EYES ×2 (05:34→13:04)
[2018-11-06 06:31] LABS: ADD MAN DIFF? NO
[2018-11-06 06:34] LABS: ABNORMAL IP MESSAGE 1; BASOPHILS % 0.6 % (0.0-2.0); EOSINOPHILS # 0.1 10^3/ul (0.0-0.5); EOSINOPHILS % 1.2 % (0.0-7.0); HEMATOCRIT 28.7 % (42.0-52.0); HEMOGLOBIN 8.3 g/dl (14.0-18.0); LYMPHOCYTES # 1.2 10^3/ul (0.8-2.9); LYMPHOCYTES % 22.5 % (15.0-51.0); MEAN CORPUSCULAR HEMOGLOBIN 27.9 pg (29.0-33.0); MEAN CORPUSCULAR HGB CONC 28.9 g/dl (32.0-37.0); MEAN CORPUSCULAR VOLUME 96.6 fl (82.0-101.0); MEAN PLATELET VOLUME 10.2 fl (7.4-10.4); MONOCYTE # 0.9 10^3/ul (0.3-0.9); MONOCYTES % 17.3 % (0.0-11.0); NEUTROPHIL # 2.9 10^3/ul (1.6-7.5); PLATELET COUNT 242 10^3/UL (140-415); POSITIVE DIFF @See below; RED BLOOD COUNT 2.97 10^6/ul (4.70-6.10); RED CELL DISTRIBUTION WIDTH 18.8 % (11.5-14.5)
[2018-11-06 06:34] LABS: WHITE BLOOD COUNT 5.1 10^3/ul (4.8-10.8)
[2018-11-06 07:10] LABS: ANION GAP 5 (5-13); BLOOD UREA NITROGEN 40 mg/dl (7-20); CALCIUM 8.8 mg/dl (8.4-10.2); CARBON DIOXIDE 28 mmol/L (21-31); CHLORIDE 113 mmol/L (97-110); CREATININE 0.94 mg/dl (0.61-1.24); Estimated GFR > 60 mL/min (>60); GLUCOSE 231 mg/dl (70-220); MAGNESIUM 2.3 mg/dl (1.7-2.5); POTASSIUM 4.1 mmol/L (3.5-5.1); SODIUM 146 mmol/L (135-144)
[2018-11-06 07:10] LABS: DIGOXIN 0.7 ng/ml (1.0-2.0)
[2018-11-06 07:31] LABS: B-TYPE NATRIURETIC PEPTIDE 10600 PG/ML (0-125)
[2018-11-06] MEDS: NEUTRA-PHOS 250 MG PACKET PO (08:04)
[2018-11-06] MEDS: APIXABAN 5 MG TABLET GTB (08:04)
[2018-11-06] MEDS: FLUOXETINE 20 MG CAP GTB (08:04)
[2018-11-06] MEDS: FAMOTIDINE 20 MG TAB GTB (08:04)
[2018-11-06] MEDS: LEVETIRACETAM (100 MG/ML) 5ML CUP GTB (08:04)
[2018-11-06] MEDS: ASCORBIC ACID 500 MG TAB GTB (08:04)
[2018-11-06] MEDS: FOLIC ACID 1 MG TAB GTB (08:04)
[2018-11-06] MEDS: LACOSAMIDE (100 MG/10 ML PO SYR) GTB (08:06)
[2018-11-06] MEDS: INSULIN ASP PROT/ASPART (70/30) PEN SC ×2 (08:22→12:26)
[2018-11-06] MEDS: BALSAM PERU/CASTOR OIL 60 GM TUBE TOP (09:00)
[2018-11-06] MEDS: FUROSEMIDE 20 MG INJ IV ×2 (09:45→12:31)
[2018-11-06] MEDS: CEFEPIME 1GM/50 ML (PMX) 50 ML IVPB (12:45)
[2018-11-06] MEDS ORDERED: INSULIN ASP PROT/ASPART (70/30) PEN SC (21:00)
[2018-11-07] MEDS ORDERED: LINAGLIPTIN 5 MG TABLET PO (09:00)
== END 2018-11-06 19:17 | DRG 871 ==
LOC: 6WM 20:55
PROC: 5A1945Z Respiratory Ventilation, 24-96 Consecutive Hours (ICD-10-PCS; principal; 2018-11-04)
DX: A41.9 Sepsis, unspecified organism (principal); J18.9 Pneumonia, unspecified organism; J96.21 Acute and chronic respiratory failure with hypoxia; G93.49 Other encephalopathy; Z94.4 Liver transplant status; N39.0 Urinary tract infection, site not specified; Z99.11 Dependence on respirator [ventilator] status; D62 Acute posthemorrhagic anemia; E87.0 Hyperosmolality and hypernatremia; Z93.0 Tracheostomy status; R00.1 Bradycardia, unspecified; M62.50 Muscle wasting and atrophy, not elsewhere classified, unspecified site; Z93.1 Gastrostomy status; E78.5 Hyperlipidemia, unspecified; R13.10 Dysphagia, unspecified; E11.65 Type 2 diabetes mellitus with hyperglycemia; I12.9 Hypertensive chronic kidney disease with stage 1 through stage 4 chronic kidney disease, or unspecified chronic kidney disease; N18.3 Chronic kidney disease, stage 3 (moderate); R31.9 Hematuria, unspecified; R23.3 Spontaneous ecchymoses; G40.909 Epilepsy, unspecified, not intractable, without status epilepticus; E11.22 Type 2 diabetes mellitus with diabetic chronic kidney disease; Z79.02 Long term (current) use of antithrombotics/antiplatelets; T50.905A Adverse effect of unspecified drugs, medicaments and biological substances, initial encounter
CPT/HCPCS: 80048; 80053; 80162; 82962; 83036; 83735; 83880; 84100; 85025; 87081; 94002; 94003; 94640

== ENCOUNTER 2019-03-12 17:43 | Inpatient (IN) | payer BC ==
[2019-03-12] MEDS: SOD CHLORIDE 0.9% 2,000 ML IV (18:27)
[2019-03-12] MEDS ORDERED: VANCOMYCIN IV PER PHARMACY XX (19:30)
[2019-03-12] MEDS ORDERED: NACL 0.9% 3 ML SYG IV (19:30)
[2019-03-12] MEDS ORDERED: ALBUTEROL/IPRATROPIUM (NEB) 3 ML AMP HHN (19:30)
[2019-03-12] MEDS ORDERED: hydrALAzine 20 MG INJ IV (19:30)
[2019-03-12] MEDS ORDERED: DOCUSATE SODIUM 100 MG CAP PO (19:30)
[2019-03-12] MEDS ORDERED: MAGNESIUM HYDROXIDE 30ML CUP PO (19:30)
[2019-03-12] MEDS ORDERED: NITROGLYCERIN (SL) 0.4 MG TAB SL (19:30)
[2019-03-12] MEDS ORDERED: ONDANSETRON 4 MG INJ IV ×2 (19:30)
[2019-03-12] MEDS ORDERED: ACETAMINOPHEN 325 MG TAB PO ×2 (19:30)
[2019-03-12] MEDS ORDERED: HYDROCODONE/APAP (5/325) TAB PO (19:30)
[2019-03-12] MEDS ORDERED: VANCOMYCIN 1 GM in 250 ML IVPB (20:00)
[2019-03-12] MEDS: SOD CHLORIDE 0.45% 1,000 ML IV (20:09)
[2019-03-12] MEDS: VANCOMYCIN 1.5 GM/NS 250 ML 250 ML IVPB (20:52)
[2019-03-12] MEDS: PIPER-TAZO 2.25 GM (PMX) 50 ML IVPB (20:56)
[2019-03-13] MEDS ORDERED: PENDING SANTYL ORDER FOR WOUND CARE XX ×2
[2019-03-13] MEDS ORDERED: GLUCOSE GEL 15 GRAM TUBE PO ×2 (01:00)
[2019-03-13] MEDS ORDERED: GLUCOSE GEL 15 GRAM TUBE BUCCAL (01:00)
[2019-03-13] MEDS ORDERED: GLUCAGON 1 MG INJ IM (01:00)
[2019-03-13] MEDS ORDERED: DEXTROSE 50% 50 ML SYRINGE IV ×2 (01:00)
[2019-03-13] MEDS: PIPER-TAZO 2.25 GM (PMX) 50 ML IVPB ×2 (02:05→05:05)
[2019-03-13] MEDS: SOD CHLORIDE 0.9% 500 ML IV (04:09)
[2019-03-13] MEDS: INSULIN ASPART [NOVOLOG] 3 ML PEN SC ×3 (05:07→17:33)
[2019-03-13] MEDS: PANTOPRAZOLE 40 MG INJ IV (05:49)
[2019-03-13] MEDS: SOD CHLORIDE 0.45% 1,000 ML IV (07:30)
[2019-03-13] MEDS: SOD CHLORIDE 0.9% 1,000 ML IV ×2 (08:43→17:30)
[2019-03-13] MEDS: FERROUS SULFATE 60 MG/ML 5ML CUP GTB (08:43)
[2019-03-13] MEDS: LEVETIRACETAM (100 MG/ML) 5ML CUP GTB ×2 (08:44→21:50)
[2019-03-13] MEDS: BALSAM PERU/CASTOR OIL 60 GM TUBE TOP ×2 (08:44→21:00)
[2019-03-13] MEDS: COLLAGENASE 5 GM (UD JAR) TOP ×2 (08:44→21:00)
[2019-03-13] MEDS: FLUOXETINE 20 MG CAP GTB (08:45)
[2019-03-13] MEDS: SCOPOLAMINE 1.5 MG PATCH TRANSDERM (08:45)
[2019-03-13] MEDS: FOLIC ACID 1 MG TAB GTB (08:46)
[2019-03-13] MEDS: APIXABAN 5 MG TABLET GTB ×2 (08:47→21:50)
[2019-03-13] MEDS: LACOSAMIDE (100 MG/10 ML PO SYR) GTB ×2 (08:52→21:49)
[2019-03-13] MEDS ORDERED: SIROLIMUS 3 MG G-TUBE (09:00)
[2019-03-13] MEDS ORDERED: VANCOMYCIN IV PER PHARMACY XX (12:30)
[2019-03-13] MEDS: DIGOXIN 0.125 MG TAB GTB (12:33)
[2019-03-13] MEDS: CEFEPIME 1GM/50 ML (PMX) 50 ML IVPB (12:43)
[2019-03-13] MEDS: [UNRECOGNIZED DRUG - OTHER] XX (15:00)
[2019-03-13] MEDS ORDERED: VANCOMYCIN 1 GM 250 ML IVPB (21:00)
[2019-03-13] MEDS: SIROLIMUS 1 MG/ML GTB (21:49)
[2019-03-13] MEDS: ATORVASTATIN 10 MG TAB GTB (21:50)
[2019-03-13] MEDS: DAKINS 0.0125%(1/40) 473 ML SOLUTION TP (21:51)
[2019-03-13] MEDS: VANCOMYCIN 1 GM 250 ML IVPB (21:51)
[2019-03-13] MEDS: DOCUSATE SODIUM 100 MG CAP PO (21:55)
[2019-03-14] MEDS: INSULIN ASPART [NOVOLOG] 3 ML PEN SC ×4 (00:59→17:32)
[2019-03-14] MEDS: SOD CHLORIDE 0.9% 1,000 ML IV ×3 (05:34→15:26)
[2019-03-14] MEDS: LANSOPRAZOLE (SOLTAB) 30 MG TAB GTB (05:34)
[2019-03-14] MEDS: FLUOXETINE 20 MG CAP GTB (09:33)
[2019-03-14] MEDS: LACOSAMIDE (100 MG/10 ML PO SYR) GTB ×2 (09:33→22:43)
[2019-03-14] MEDS: LEVETIRACETAM (100 MG/ML) 5ML CUP GTB ×2 (09:33→22:34)
[2019-03-14] MEDS: APIXABAN 5 MG TABLET GTB ×2 (09:34→22:35)
[2019-03-14] MEDS: COLLAGENASE 5 GM (UD JAR) TOP ×2 (09:34→22:34)
[2019-03-14] MEDS: SIROLIMUS 1 MG/ML GTB ×2 (09:34→21:00)
[2019-03-14] MEDS: DOCUSATE SODIUM 100 MG CAP PO ×2 (09:34→22:43)
[2019-03-14] MEDS: FERROUS SULFATE 60 MG/ML 5ML CUP GTB (09:34)
[2019-03-14] MEDS: FOLIC ACID 1 MG TAB GTB (09:34)
[2019-03-14] MEDS: DAKINS 0.0125%(1/40) 473 ML SOLUTION TP ×2 (09:35→22:36)
[2019-03-14] MEDS: BALSAM PERU/CASTOR OIL 60 GM TUBE TOP ×2 (09:35→22:37)
[2019-03-14] MEDS: ALBUMIN HUMAN 25% 100 ML IV (12:31)
[2019-03-14] MEDS: VANCOMYCIN 1 GM 250 ML IVPB (22:34)
[2019-03-14] MEDS: ATORVASTATIN 10 MG TAB GTB (22:35)
[2019-03-15] MEDS: INSULIN ASPART [NOVOLOG] 3 ML PEN SC ×3 (02:00→11:44)
[2019-03-15] MEDS: LANSOPRAZOLE (SOLTAB) 30 MG TAB GTB (05:56)
[2019-03-15] MEDS: SOD CHLORIDE 0.9% 1,000 ML IV (07:19)
[2019-03-15] MEDS: FERROUS SULFATE 60 MG/ML 5ML CUP GTB (09:28)
[2019-03-15] MEDS: FLUOXETINE 20 MG CAP GTB (09:28)
[2019-03-15] MEDS: FOLIC ACID 1 MG TAB GTB (09:28)
[2019-03-15] MEDS: APIXABAN 5 MG TABLET GTB (09:28)
[2019-03-15] MEDS: DOCUSATE SODIUM 100 MG CAP PO (09:28)
[2019-03-15] MEDS: SIROLIMUS 1 MG/ML GTB (09:28)
[2019-03-15] MEDS: LACOSAMIDE (100 MG/10 ML PO SYR) GTB (09:28)
[2019-03-15] MEDS: COLLAGENASE 5 GM (UD JAR) TOP (09:29)
[2019-03-15] MEDS: DAKINS 0.0125%(1/40) 473 ML SOLUTION TP (09:29)
[2019-03-15] MEDS: BALSAM PERU/CASTOR OIL 60 GM TUBE TOP (09:29)
[2019-03-15] MEDS: LEVETIRACETAM (100 MG/ML) 5ML CUP GTB (09:29)
[2019-03-15] MEDS: LORAZEPAM 2 MG INJ IV (11:33)
[2019-03-15] MEDS: DIGOXIN 0.125 MG TAB GTB (12:12)
[2019-03-15] MEDS: INSULIN GLARGINE [LANTus] (100 UNITS/ML) SYG SC (15:49)
[2019-03-15] MEDS: FOSFOMYCIN 3 GM PACKET PO (16:17)
== END 2019-03-15 17:18 | DRG 683 ==
LOC: E/R 17:43 → TEL 19:18
PROC: 5A1945Z Respiratory Ventilation, 24-96 Consecutive Hours (ICD-10-PCS; principal; 2019-03-12)
DX: N17.9 Acute kidney failure, unspecified (principal); Z94.4 Liver transplant status; Z99.11 Dependence on respirator [ventilator] status; G93.40 Encephalopathy, unspecified; J96.11 Chronic respiratory failure with hypoxia; G12.21 Amyotrophic lateral sclerosis; E87.2 Acidosis; I42.9 Cardiomyopathy, unspecified; D68.9 Coagulation defect, unspecified; N39.0 Urinary tract infection, site not specified; Z93.0 Tracheostomy status; I48.2 Chronic atrial fibrillation; E86.0 Dehydration; E11.22 Type 2 diabetes mellitus with diabetic chronic kidney disease; Z93.1 Gastrostomy status; D53.1 Other megaloblastic anemias, not elsewhere classified; I12.9 Hypertensive chronic kidney disease with stage 1 through stage 4 chronic kidney disease, or unspecified chronic kidney disease; N18.9 Chronic kidney disease, unspecified; Z79.4 Long term (current) use of insulin; G40.909 Epilepsy, unspecified, not intractable, without status epilepticus; E78.5 Hyperlipidemia, unspecified; D50.9 Iron deficiency anemia, unspecified
CPT/HCPCS: 36415; 76775; 80048; 80053; 80061; 81001; 82436; 82962; 83036; 83605; 83735; 84100; 84133; 84300; 84439; 84443; 85025; 85610; 85730; 87040-91; 87070; 87086; 93005; 94002; 94003; 96360; 97162; 99285-25